=== PATIENT | female | born 1970 | race Caucasian/White ===

== ENCOUNTER 2023-06-30 13:29 | Emergency (ER) | payer OTHER, SELFPAY ==
--- NOTE | ~2023-06-30 | CT_ITS ---
EXAMINATION: CT HEAD WITHOUT CONTRAST CT ORBIT with intravenous CONTRAST CLINICAL INFORMATION: Right central vision loss. COMPARISON: None. TECHNIQUE: Imaging was performed from the skull base to vertex without intravenous administration of contrast. In addition, helical postcontrast CT imaging was acquired through the orbits and source images were reviewed along with axial reconstructions and sagittal and coronal MPRs. 85 cc Omnipaque 350 injected intravenously. [This CT examination was performed using dose optimization techniques as appropriate, variously including the following: *Automated exposure control *Adjustment of mA and/or kV according to patient size (this includes techniques or standardized protocols for targeted exams where dose is matched to indication/reason for exam; i.e. extremities or head) *Use of iterative reconstruction technique] DLP: 810 mGy-cm FINDINGS: HEAD: No intracranial mass, hemorrhage, or midline shift is visualized. The ventricles and sulci are normal. No extra-axial collections are identified. ORBITS: Globes and retrobulbar structures are normal. No mass or abnormal enhancement. Extraocular muscles and the optic nerves are symmetric and normal in appearance bilateral. No edema around the orbits or involving the retrobulbar structures. The visualized portion of the paranasal sinuses are normally aerated. There is no osseous abnormality. CT/CT orbit BI w IV con IMPRESSION: No acute intracranial process or discrete facial bone fracture.
--- NOTE | ~2023-06-30 | CT_ITS ---
EXAMINATION: CT HEAD WITHOUT CONTRAST CT ORBIT with intravenous CONTRAST CLINICAL INFORMATION: Right central vision loss. COMPARISON: None. TECHNIQUE: Imaging was performed from the skull base to vertex without intravenous administration of contrast. In addition, helical postcontrast CT imaging was acquired through the orbits and source images were reviewed along with axial reconstructions and sagittal and coronal MPRs. 85 cc Omnipaque 350 injected intravenously. [This CT examination was performed using dose optimization techniques as appropriate, variously including the following: *Automated exposure control *Adjustment of mA and/or kV according to patient size (this includes techniques or standardized protocols for targeted exams where dose is matched to indication/reason for exam; i.e. extremities or head) *Use of iterative reconstruction technique] DLP: 810 mGy-cm FINDINGS: HEAD: No intracranial mass, hemorrhage, or midline shift is visualized. The ventricles and sulci are normal. No extra-axial collections are identified. ORBITS: Globes and retrobulbar structures are normal. No mass or abnormal enhancement. Extraocular muscles and the optic nerves are symmetric and normal in appearance bilateral. No edema around the orbits or involving the retrobulbar structures. The visualized portion of the paranasal sinuses are normally aerated. There is no osseous abnormality. CT/CT head/brain wo IV con IMPRESSION: No acute intracranial process or discrete facial bone fracture.
[2023-06-30 14:05] VITALS: BP 150/81; PULSE 89; RESP 18; TEMP 36.4; O2SAT 98; BMI 30.6
--- NOTE | 2023-06-30 14:05 | ED.EYEPROB ---
HPI - Eye Problem General Chief complaint: Eye Problems Stated complaint: loss of vision Time Seen by Provider: 06/30/23 16:42 Source: patient Mode of arrival: ambulatory History of Present Illness HPI Narrative: 52-year-old female reports that while driving she experienced centralized vision loss and describes it as the biggest floater she has ever had and states that she has been informed of macular degeneration in the past, she did see an fire services plumber with a dilated exam over a year ago and has seen a 2nd fire services plumber within the past 10 days but states that that time there were no acute findings but this was not a dilated exam. Patient does describe that she has thyroid disease for which she takes methimazole and has been told that she has thyroid eye disease but does not feel that this is the case. Patient also had a severe headache associated with this central vision loss and states that the headache has resolved but that her vision is still unchanged. Related Data Allergies Allergy/AdvReac Type Severity Reaction Status Date / Time oxycodone [From PERCOCET] Allergy Unknown RASH Verified 06/30/23 14:09 sulfamethoxazole Allergy Unknown RASH Verified 06/30/23 14:09 [From BACTRIM] trimethoprim [From BACTRIM] Allergy Unknown RASH Verified 06/30/23 14:09 amoxicillin [From Augmentin] Allergy Rash Verified 06/30/23 14:09 clavulanic acid Allergy Rash Verified 06/30/23 14:09 [From Augmentin] Review of Systems Review of Systems: Pertinent positives and negatives as stated in HPI PMFSH Past Medical History Source: nursing notes reviewed Social History Social History Smoked in Last 30 Days: No Advance Directives: No Advance Directives Information Provided: No Physical Exam Vital Signs: Vital Signs: Last Vital Signs Temp 98.2 F 06/30/23 16:41 Pulse 95 06/30/23 16:41 Resp 16 06/30/23 16:41 BP 120/62 06/30/23 16:41 Pulse Ox 100 06/30/23 16:41 O2 Del Method Room Air 06/30/23 16:41 BMI result Body Mass Index 30.6 VITAL SIGNS: Reviewed. GENERAL: Well developed, well nourished, in no acute distress. HEAD: Normocephalic/atraumatic EYES: PERRLA, EOMI, no gaze palsies, exophthalmos is appreciated IOP: OD-14, OS-14 no subconjunctival injection EARS: Ext canals without abnormality NOSE: Nares patent bilateral OROPHARYNX: no oral lesions noted, posterior pharynx clear NECK: Supple, no adenopathy LUNGS: Normal breath sounds. No adventitious sounds or accessory muscle use. SpO2<100> CARDIOVASCULAR: Regular rate and rhythm without noted murmurs ABDOMEN: Soft, non-tender, non-distended with bowel sounds. MUSCULOSKELETAL: No tenderness, deformities, or effusions noted on gross inspection. EXTREMITIES: No cyanosis, clubbing or edema. SKIN: Inspection of the skin reveals no rashes NEUROLOGIC: Alert and oriented x 4. Strength and sensation to light touch were grossly intact x 4. Course Course Course Narrative: RME: 52 year-old F w/ PMHx Graves dz presenting to the ED c/o visual loss to R eye x yesterday which started suddenly while driving w/assoc VALENZUELA, eye pressure, & clear drainage from eye. Described as black floater in eye that moves w/eye movement. denies flashing lights. +wear glasses, no contacts appears very uncomfortable, +tearing VA, tetracaine and fluorescein ordered Full HPI, ROS and PE to be performed by primary ED provider. Medications Administered Discontinued Medications Generic Name Dose Route Start Last Admin Trade Name Radha PRN Reason Stop Dose Admin Fluorescein Sodium 1 strip 06/30/23 14:07 06/30/23 17:06 Fluorescein Sodium Strip EYE-RIGHT 06/30/23 14:08 Not Given ONCE ONE Iohexol 85 ml 06/30/23 17:53 06/30/23 17:53 Iohexol 350 Mg/Ml 100 Ml Infus..Btl IV 06/30/23 17:54 85 ml ONCE ONE Administration Tetracaine HCl 3 drop 06/30/23 14:07 06/30/23 17:06 Tetracaine Hcl/Pf 0.5% Oph Kathi 4 Ml Drops EYE-RIGHT 06/30/23 14:08 Not Given ONCE ONE Medical Decision Making Medical Decision Making MDM Narrative: 52-year-old female with history and clinical presentation, DDX: I did discuss this case with Ophthalmology, Dr. Priest, who is recommending that patient see a retinal specialist, does state that compression can cause optic neuropathy, recommends checking for red desaturation however patient is unable to appreciate any central vision from the right eye. I conducted the red saturation test, patient does not note a color difference and thereby less likely to be a neuropathy. Since it was a starburst package I asked the patient to look at the S and she states that when she looks at the as she is unable to see the 1st 3 letters on the package but then can see this surrounding letters of the word. I reviewed all investigations and hematologic indices demonstrates an isolated leukocytosis, patient is otherwise afebrile and has no constitutional symptom complaints, there is no anemia or thrombocytopenia. Chemistry indices do not demonstrate any JENNIFER or electrolyte/liver enzyme derangements. Patient's TSH is consistent with underlying diagnosis of hyperthyroid with a T4 that is noted to be within normal range. Viral testing negative for COVID-19/influenza. CT of the head noncontrast not significant for any intracranial hemorrhage or mass effect. Orbit evaluation not significant for gross abnormality. My interpretation is that this may be secondary to retinal or macular degeneration in etiology. Patient is otherwise discharged home in stable condition and instructed to follow-up with Dr. Priest on Sunday or reach out her fire services plumber at her earliest convenience. Differential Diagnosis Differential Diagnoses: The differential diagnosis associated with the presentation includes Please see the discussion above Admission/Observation Consideration of admission/observation: Escalation of care including admission/observation considered Please see the discussion above Consult Healthcare Provider Management of the patient was discussed with: [employer] Writer Please see the discussion Lab Data MDM Lab Attestation statement: I reviewed the patient's lab results. 06/30/23 17:01 06/30/23 17:01 Labs: Lab Results 06/30/23 06/30/23 Range/Units 17:01 18:02 WBC 14.0 H (4.8-10.8) X10*3/uL RBC 5.03 (4.20-5.50) X10*6/uL Hgb 12.9 (12.0-16.0) g/dl Hct 40.3 (37.0-47.0) % MCV 80.1 (80.0-98.0) fL MCH 25.6 L (27.0-33.0) pg MCHC 32.0 (31.0-35.0) g/dl RDW 16.0 (11.0-16.0) % Plt Count 391 (160-400) X10*3/uL MPV 8.8 L (9.4-12.3) fL Immature Gran % (Auto) 0.3 (0.0-0.4) % Neut % (Auto) 51.8 (45-73) % Lymph % (Auto) 35.8 (20-40) % Mchenry % (Auto) 7.8 (2-11) % Eos % (Auto) 3.7 (0-4) % Baso % (Auto) 0.6 (0-2) % Lymph # (Auto) 5.0 H (1.2-4.9) X10*3/uL Mchenry # (Auto) 1.1 (0.1-1.2) X10*3/uL Eos # (Auto) 0.5 H (0.0-0.4) X10*3/uL Baso # (Auto) 0.1 (0.0-0.2) X10*3/uL Abs Immat Gran (auto) 0.04 H (0.00-0.03) X10*3/uL Absolute Neuts (auto) 7.3 (2.0-8.3) x10*3/uL Absolute Nucleated RBC 0.000 (0.0-0.012) X10*3/uL Nucleated RBC % (auto) 0.0 (0.0-0.2) /100WBC Smear Tech's Comments VERIFIED Sodium 141 (135-145) mmol/L Potassium 3.4 (3.3-5.1) mmol/L Chloride 105 (96-108) mmol/L Carbon Dioxide 27 (22-29) mmol/L Anion Gap 12 (12-20) BUN 16 (9-16) mg/dL Creatinine 0.67 (0.5-1.4) mg/dL Estim Creat Clear Calc 113.6 Estimated GFR > 60 Random Glucose 112 (60-115) mg/dL Calcium 9.7 (8.4-10.2) mg/dL Total Bilirubin 0.2 (0.0-1.0) mg/dL AST 18 (5-31) U/L ALT 16 (0-31) U/L Alkaline Phosphatase 119 H (39-117) U/L Total Protein 8.1 H (6.5-8.0) g/dL Albumin 4.2 (3.5-5.0) g/dL TSH < 0.01 L (0.32-4.0) uIU/mL Free T4 1.69 (0.71-1.85) ng/dL COVID-19 (CAROL) Negative (Negative) COVID-19 Clin Com See Note Influenza Type A (MARK) Negative (Negative) Influenza Type B (MARK) Negative (Negative) Influenza A & B Note See Note Radiology Impression Discussion of test interpretation with radiology: I have reviewed the radiologist's reading. Radiologist Impression: Please see the discussion above Critical Care Time Critical Care Time Critical Care Time: Yes Total Critical Care Time: 45 Attestation: I personally attest to this time spent taking care of the patient. Discharge Plan Discharge Clinical Impression: Vision changes Patient Disposition: Home, Self-Care Instructions: Blurred Vision (ED) Additional Instructions: Please follow-up with your primary care doctor and/or your fire services plumber 1st thing on Sunday morning. If you would like to please follow-up with the fire services plumber referral that is provided to you below. Return to the ER for any worsening symptoms. Referrals: Sven Johnson MD [Primary Care Provider] - Som Priest [Physician] -
[2023-06-30 16:41] VITALS: BP 120/62; PULSE 95; RESP 16; TEMP 36.8; O2SAT 100
[2023-06-30 17:07] LABS: Basophils Absolute Auto 0.1 X10*3/uL (0.0-0.2); Basophils Percent Auto 0.6 % (0-2); Eosinophils Absolute Auto 0.5 X10*3/uL (0.0-0.4); Eosinophils Percent Auto 3.7 % (0-4); Hematocrit 40.3 % (37.0-47.0); Hemoglobin 12.9 g/dl (12.0-16.0); Imm Gran Abs Auto 0.04 X10*3/uL (0.00-0.03); Imm Gran Pct Auto 0.3 % (0.0-0.4); Lymphocytes Percent Auto 35.8 % (20-40); MANUAL DIFF FLAG SCAN; Mean Corpuscular Hemoglobin 25.6 pg (27.0-33.0); Mean Corpuscular Volume 80.1 fL (80.0-98.0); Mean Platelet Volume 8.8 fL (9.4-12.3); Monocytes Absolute Auto 1.1 X10*3/uL (0.1-1.2); Monocytes Percent Auto 7.8 % (2-11); Neutrophils Absolute Auto 7.3 x10*3/uL (2.0-8.3); Neutrophils Percent Auto 51.8 % (45-73); Platelet Count 391 X10*3/uL (160-400); Red Blood Count 5.03 X10*6/uL (4.20-5.50); SCAN SMEAR FLAG 1
--- NOTE | 2023-06-30 17:10 | PC.NURSE ---
Patient admitted with R eye/head pain. Patient states she has a constant big floater in eye, is able to see out of eye. Visual acuity done 20/25 in R eye from distance with glasses.
[2023-06-30 17:36] LABS: Alanine Aminotransferase 16 U/L (0-31); Albumin Level 4.2 g/dL (3.5-5.0); Alkaline Phosphatase 119 U/L (39-117); Anion Gap 12 (12-20); Aspartate Amino Transferase 18 U/L (5-31); Bilirubin Total 0.2 mg/dL (0.0-1.0); Blood Urea Nitrogen 16 mg/dL (9-16); Calcium 9.7 mg/dL (8.4-10.2); Carbon Dioxide 27 mmol/L (22-29); Chloride 105 mmol/L (96-108); Creatinine Clr Calc Pharmacy 113.6; Estimated Glomerular Filt Rate > 60; Glucose Random 112 mg/dL (60-115); Potassium 3.4 mmol/L (3.3-5.1); Sodium 141 mmol/L (135-145); Total Protein 8.1 g/dL (6.5-8.0)
[2023-06-30 17:46] LABS: SLIDE REVIEW VERIFIED
[2023-06-30 17:52] LABS: TSH reflex Free T4 < 0.01 uIU/mL (0.32-4.0)
[2023-06-30] MEDS: iohexoL 350 MG/ML 100 ML INFUS..BTL 85 ML IV (17:53)
[2023-06-30 18:24] LABS: Free T4 (Free Thyroxine) 1.69 ng/dL (0.71-1.85)
[2023-06-30 18:39] LABS: COVID-19 Test Negative (Negative); IDNOW Serial# 55D5AD1C; IDNOW Serial# 9DB6401D; Influenza A Negative (Negative); Influenza B2 Negative (Negative)
[2023-06-30 19:58] VITALS: BP 119/78; PULSE 80; RESP 16; TEMP 36.6; O2SAT 98
== END 2023-06-30 19:59 | disposition home or self-care (01) ==
PROVIDERS: Emergency Provider Student in an Organized Health Care Education/Training Program; PCP Pediatrics
DX: H53.8 Other visual disturbances (principal); E05.00 Thyrotoxicosis with diffuse goiter without thyrotoxic crisis or storm; Z11.52 Encounter for screening for COVID-19
CPT/HCPCS: 36415; 70450; 70481; 80053; 84439; 84443; 85025; 87502; 87635; 99284; Q9967